=== PATIENT | female | born 1980 | race African-American/Black ===

== ENCOUNTER → 2018-10-10 | Outpatient (CLI) | payer OTHER | LOC: YHH 10:25 ==

== ENCOUNTER 2020-01-06 13:24 | Emergency (ER) | payer OTHER ==
[2020-01-06 13:28] VITALS: BP 125/89; PULSE 87; TEMP 97; BMI 32.8
== END 2020-01-06 14:25 | disposition home or self-care (01) ==
LOC: JERFT 13:24
DX: S43.51XA Sprain of right acromioclavicular joint, initial encounter (principal)
CPT/HCPCS: 73000-TC-LT-FY; 73140-TC-RT-FY; 99284-25

== ENCOUNTER 2021-12-26 12:58 | Emergency (ER) | payer OTHER ==
[2021-12-26 13:30] VITALS: BP 141/90; PULSE 83; RESP 20; TEMP 98.1; BMI 30.8
== END 2021-12-26 13:46 | disposition home or self-care (01) ==
LOC: FER 12:58
DX: G56.01 Carpal tunnel syndrome, right upper limb (principal)
CPT/HCPCS: 99281-25